=== PATIENT | female | born 1940 | race African-American/Black ===

== ENCOUNTER 2016-10-08 20:11 | Inpatient (IN) | payer OTHER ==
[~2016-10-08] VITALS: Ht 165.1 cm; Wt 115.0 kg
[2016-10-08] MEDS ORDERED: UNABLE MC (20:30)
[2016-10-08 21:29] LABS: BASO # 0.2 x10^3/uL (0.0-0.2); BASO % 1 % (0-3); EOS % 0 % (0-3); HEMATOCRIT 36.7 % (36.0-47.0); HEMOGLOBIN 11.5 g/dL (12.0-15.5); LYMPH # 2.6 x10^3/uL (1.0-4.8); LYMPH % 18 % (24-48); MEAN CORPUSCULAR HEMOGLOBIN 28 pg (25-35); MEAN CORPUSCULAR HGB CONC 31 g/dL (31-37); MEAN CORPUSCULAR VOLUME 91 fL (79-100); MONO % 5 % (0-9); NEUT % 76 % (31-73); PLATELET COUNT 364 x10^3/uL (140-400); RED BLOOD COUNT 4.06 x10^6/uL (3.50-5.40); RED CELL DISTRIBUTION WIDTH 16.5 % (11.5-14.5); WHITE BLOOD COUNT 14.9 x10^3/uL (4.0-11.0)
[2016-10-08] MEDS ORDERED: ONDANSETRON PF 4 MG/2 ML VIAL. IV ONE (21:30)
[2016-10-08 21:43] LABS: CALCIUM 9.2 mg/dL (8.5-10.1); CREATININE 1.2 mg/dL (0.6-1.0); GFR 43.9
[2016-10-08 21:50] LABS: ALBUMIN/GLOBULIN RATIO 0.7 (1.0-1.7); TOTAL BILIRUBIN 0.1 mg/dL (0.2-1.0); TOTAL PROTEIN 7.3 g/dL (6.4-8.2)
--- NOTE | 2016-10-08 22:20 | ED.ADGEN ---
Past Medical History Past Medical History: CHF, COPD, Diabetes-Type II, Hypertension Additional Past Medical Histor: obesity,falls,shingles Past Surgical History: Other Additional Past Surgical Histo: hernia Alcohol Use: None Drug Use: None Adult General Chief Complaint Chief Complaint: DIZZY/LIGHT HEADED HPI HPI Patient is a 75 year old woman, history of CHF, COPD, hypertension, type 2 diabetes mellitus, who presents emergency department with multiple complaints. Patient states that she woke 2 days ago, and was feeling unwell. She states that she is not quite clear whether she felt nauseous first had vomiting, or she began feeling lightheaded and dizzy, both of the stings occurred. She denies any chest pain or shortness of breath, any fevers or chills, states she received her flu vaccination this year, was exposed to a granddaughter who is ill. No coughing, denies any swelling in her extremities. States that she has been compliant with her medications. Describes the lightheadedness as a vertiginous type symptom, denies any weakness numbness or tingling, headache " is all over", no neck pain, does complain of generalized malaise and generalized "all over" weakness. She states that she's had several episodes of "blacking out", where she was held down onto a couch by family, but has not had any injuries. She states that she's "seen all black" when this happens, although is unclear whether she actually fully loss consciousness or came very close to losing consciousness. This followed multiple episodes of vomiting, denies any diarrhea, states that she has "all over" soreness in her abdomen after vomiting, last bowel movement was today and was normal. In eyes any urinary complaints. Review of Systems Review of Systems Constitutional: Denies fever or chills. [] Eyes: Denies change in visual acuity. [] HENT: Denies nasal congestion or sore throat. [] Respiratory: Denies cough or shortness of breath. [] Cardiovascular: Denies chest pain or edema. [] GI: Nausea, vomiting, abdominal soreness, no bloody stools or diarrhea. : Denies dysuria. [] Musculoskeletal: Denies back pain or joint pain. [] Integument: Denies rash. [] Neurologic: Denies focal weakness or sensory changes. [Generalized malaise, headache all over the head. "Blackouts". Endocrine: Denies polyuria or polydipsia. [] Lymphatic: Denies swollen glands. [] Psychiatric: Denies depression or anxiety. [] Current Medications Current Medications Current Medications Medications (Trade) Dose Ordered Sig/Babs Start Time Stop Time Status Last Admin Dose Admin Ondansetron HCl (Zofran) 4 mg 1X ONCE 10/08/16 21:30 10/08/16 21:31 DC 10/08/16 21:29 4 MG Allergies Allergies Allergies Coded Allergies Type Severity Reaction Last Updated Verified No Known Drug Allergies 10/08/16 No Physical Exam Physical Exam Constitutional: Well developed, obese, no acute distress, non-toxic appearance. [] HENT: Normocephalic, atraumatic, bilateral external ears normal, oropharynx moist, no oral exudates, nose normal. [] Eyes: PERRLA, EOMI, conjunctiva normal, no discharge. [] Neck: Normal range of motion, no tenderness, supple, no stridor. [] Cardiovascular:Heart rate regular rhythm, no murmur, S1, S2, no rubs or gallops , soft heart sounds. [] Lungs & Thorax: Distress of the bases bilaterally, with a few mild scattered wheezes, no rhonchi or rales. [] Abdomen: Bowel sounds normal, obese, soft, mild wrist palpation diffusely, no rebound, rigidity or guarding, patient with well-healed midline surgical incision status post a hernia repair no masses, no pulsatile masses. [] Skin: Warm, dry, no erythema, no rash. [] Back: No tenderness, no CVA tenderness. [] Extremities: No tenderness, no cyanosis, no clubbing, ROM intact, no edema. [] Neurologic: Alert and oriented X 3, normal motor function, normal sensory function, no focal deficits noted. [] Psychologic: Affect normal, judgement normal, mood normal. [] Current Patient Data Vital Signs Vital Signs Date Time Temp Pulse Resp B/P Pulse Ox O2 Delivery O2 Flow Rate FiO2 10/08/16 20:11 98.0 80 22 195/93 96 Room Air 98.0 Lab Values Laboratory Tests Test 10/08/16 20:40 10/08/16 22:36 10/08/16 22:37 10/08/16 22:50 White Blood Count 14.9x10^3/uL (4.0-11.0) H Red Blood Count 4.06x10^6/uL (3.50-5.40) Hemoglobin 11.5g/dL (12.0-15.5) L Hematocrit 36.7% (36.0-47.0) Mean Corpuscular Volume 91fL (79-100) Mean Corpuscular Hemoglobin 28pg (25-35) Mean Corpuscular Hemoglobin Concent 31g/dL (31-37) Red Cell Distribution Width 16.5% (11.5-14.5) H Platelet Count 364x10^3/uL (140-400) Neutrophils (%) (Auto) 76% (31-73) H Lymphocytes (%) (Auto) 18% (24-48) L Monocytes (%) (Auto) 5% (0-9) Eosinophils (%) (Auto) 0% (0-3) Basophils (%) (Auto) 1% (0-3) Neutrophils # (Auto) 11.3x10^3uL (1.8-7.7) H Lymphocytes # (Auto) 2.6x10^3/uL (1.0-4.8) Monocytes # (Auto) 0.8x10^3/uL (0.0-1.1) Eosinophils # (Auto) 0.0x10^3/uL (0.0-0.7) Basophils # (Auto) 0.2x10^3/uL (0.0-0.2) Prothrombin Time 13.0SEC (11.7-14.0) Prothrombin Time INR 1.0 (0.8-1.1) PTT 30SEC (24-38) Sodium Level 140mmol/L (136-145) Potassium Level 4.0mmol/L (3.5-5.1) Chloride Level 103mmol/L (98-107) Carbon Dioxide Level 31mmol/L (21-32) Anion Gap 6 (6-14) Blood Urea Nitrogen 20mg/dL (7-20) Creatinine 1.2mg/dL (0.6-1.0) H Estimated GFR (Cockcroft-Gault) 43.9 BUN/Creatinine Ratio 17 (6-20) Glucose Level 176mg/dL (70-99) H Calcium Level 9.2mg/dL (8.5-10.1) Total Bilirubin 0.1mg/dL (0.2-1.0) L Aspartate Amino Transferase (AST) 15U/L (15-37) Alanine Aminotransferase (ALT) 20U/L (14-59) Alkaline Phosphatase 103U/L (46-116) Troponin I Quantitative < 0.017ng/mL (0.000-0.055) Total Protein 7.3g/dL (6.4-8.2) Albumin 3.0g/dL (3.4-5.0) L Albumin/Globulin Ratio 0.7 (1.0-1.7) L Lipase 117U/L (73-393) Influenza Type A Antigen Negative (NEGATIVE) Influenza Type B Antigen Negative (NEGATIVE) Lactic Acid Level 1.7mmol/L (0.4-2.0) Urine Collection Type Unknown Urine Color Yellow Urine Clarity Cloudy Urine pH 5.5 Urine Specific [place] 1.015 Urine Protein Negativemg/dL (NEG-TRACE) Urine Glucose (UA) Negativemg/dL (NEG) Urine Ketones (Stick) Negativemg/dL (NEG) Urine Blood Negative (NEG) Urine Nitrite Negative (NEG) Urine Bilirubin Negative (NEG) Urine Urobilinogen Dipstick 0.2mg/dL (0.2 mg/dL) Urine Leukocyte Esterase Negative (NEG) Urine RBC Occ/HPF (0-2) Urine WBC 1-4/HPF (0-4) Urine Squamous Epithelial Cells Mod/LPF Urine Bacteria Moderate/HPF (0-FEW) Urine Hyaline Casts Few/HPF Urine Mucus Slight/LPF Urine Opiates Screen Pos (NEG) Urine Methadone Screen Neg (NEG) Urine Barbiturates Neg (NEG) Urine Phencyclidine Screen Neg (NEG) Urine Amphetamine/Methamphetamine Neg (NEG) Urine Benzodiazepines Screen Neg (NEG) Urine Cocaine Screen Neg (NEG) Urine Cannabinoids Screen Neg (NEG) Urine Ethyl Alcohol Neg (NEG) Laboratory Tests 10/08/16 20:40 Laboratory Tests 10/08/16 20:40 EKG EKG EC: Sinus rhythm, heart rate 79 beats minute, left axis deviation, QTC of 455, DE 126, QRS of 70, moderate baseline artifact, no ST elevations or depressions, no evidence of acute ST abnormalities. [Hypertrophy noted. Does not meet STEMI criteria. As interpreted by me. [] Radiology/Procedures Radiology/Procedures [] [facility] [address] [place] [address] IMAGING REPORT Signed PATIENT: AYANA COTE ACCOUNT: [id number] : 1940 LOCATION: ER AGE: 75 SEX: F EXAM STATUS: REG ER ORD. PHYSICIAN: JEAN SWENSON DO REASON: Dizziness/SEAY x 2 days PROCEDURE: HEAD WO CONTRAST PROCEDURE Noncontrast head CT HISTORY Dizziness. Headache for 2 days. History of TIA. TECHNIQUE Noncontrast axial cross sectional CT scanning of the head was performed. One or more of the following individualized dose reduction techniques were utilized for this study: 1. Automated exposure control 2. Adjustment of the mA and/or kV according to patient size 3. Use of iterative reconstruction technique COMPARISON None available. FINDINGS No acute intracranial hemorrhage or midline shift or mass-effect or hydrocephalus or extra-axial fluid collection is seen. No focal hypodense area is seen to indicate an acute infarct or edema radiographically. No skull fracture or pneumocephalus is seen. No opacification of the mastoid sinuses or the paranasal sinuses is seen. The maxillary sinuses are not completely seen in this study. IMPRESSION No acute intracranial abnormality is seen. Electronically signed by: Sima Marte MD (Oct 08, 2016 22:41:13) DICTATED and SIGNED BY: SIMA MARTE MD DATE: 10/08/162240 CC: JEAN SWENSON DO; NO PCP ~ Acute abdominal series: 3 view: Normal cardiopulmonary silhouette, no infiltrates or effusions identified, no free air, no pneumothorax, patient with an obese abdomen, stool and bowel gas noted throughout, no air-fluid levels, no evidence of obstruction. As interpreted by me. Course & Med Decision Making Course & Med Decision Making Pertinent Labs and Imaging studies reviewed. (See chart for details) Patient's laboratory studies and imaging in the emergency department did not reveal any acutely concerning findings, or a cause for her recurrent report of syncope. Flu swab was negative. I did discuss these findings with the patient and family at bedside, as we do not have a clear etiology for the patient's syncopal events, she is agreeable for admission to the hospital for continued evaluation. She remained stable in sinus rhythm on the monitor. I did discuss findings as above with Dr. ashley of internal medicine, patient was accepted to his service as a full admission to the cardiac telemetry floor, with consultation and bridging orders entered per his request. Dragon Disclaimer Dragon Disclaimer This electronic medical record was generated, in whole or in part, using a voice recognition dictation system. Departure Impression: Primary Impression: Syncope Disposition: 09 ADMITTED INPATIENT Admitting Physician: Nelda Ashley Condition: STABLE Problem Qualifiers Primary Impression: Syncope Encounter type: initial encounter JEAN SWENSON DO Oct 08, 2016 22:20
--- NOTE | 2016-10-08 22:42 | RAD ---
PROCEDURE Noncontrast head CT HISTORY Dizziness. Headache for 2 days. History of TIA. TECHNIQUE Noncontrast axial cross sectional CT scanning of the head was performed. One or more of the following individualized dose reduction techniques were utilized for this study: 1. Automated exposure control 2. Adjustment of the mA and/or kV according to patient size 3. Use of iterative reconstruction technique COMPARISON None available. FINDINGS No acute intracranial hemorrhage or midline shift or mass-effect or hydrocephalus or extra-axial fluid collection is seen. No focal hypodense area is seen to indicate an acute infarct or edema radiographically. No skull fracture or pneumocephalus is seen. No opacification of the mastoid sinuses or the paranasal sinuses is seen. The maxillary sinuses are not completely seen in this study. IMPRESSION No acute intracranial abnormality is seen. Electronically signed by: Costa Maret MD (Oct 08, 2016 22:41:13)
[2016-10-08 22:57] LABS: BILIRUBIN,URINE NEGATIVE (NEG); GLUCOSE,URINE NEGATIVE (NEG); NITRITE,URINE NEGATIVE (NEG); PH,URINE 5.5; PROTEIN,URINE NEGATIVE (NEG-TRACE); UROBILINOGEN,URINE 0.2 mg/dL (0.2 mg/dL)
[2016-10-08 23:05] LABS: RBC,URINE OCC /HPF (0-2)
[2016-10-08 23:06] LABS: BACTERIA,URINE MODERATE /HPF (0-FEW); SQUAMOUS EPITHELIAL CELL,UR MOD /LPF
[2016-10-08 23:12] LABS: OBC FLU VALID
[2016-10-08 23:14] LABS: BARBITURATES NEG (NEG); BENZODIAZEPINES NEG (NEG); CANNABINOIDS NEG (NEG); COCAINE NEG (NEG); METHADONE NEG (NEG); OPIATES POS (NEG); PHENCYCLIDINE NEG (NEG)
[2016-10-08 23:16] LABS: ETHANOL, URINE NEG (NEG)
[2016-10-09] VITALS (7 sets, daily range): BP systolic 125–160; BP diastolic 39–72
[2016-10-09] MEDS ORDERED: ACETAMINOPHEN 325 MG TABLET. PO PRN ×2 (01:00→16:00)
[2016-10-09] MEDS ORDERED: DEXTROSE 50% 25 GM / 50ML DISP.SYRIN. IV PRN (01:00)
--- NOTE | 2016-10-09 07:54 | EKG ---
[facility] [address] [place] [address] Test Date: 2016-10-08 Test Time: 20:22:34 Pat Name: AYANA COTE Department: Room: 260 1 Gender: F Crossbar Frame Wirer: : 1940 Requested By: JEAN SWENSON Order Number: [id number] Reading MD: Varghese Nolan Measurements Intervals [place] Rate: 79 P: 56 AL: 126 QRS: -19 QRSD: 70 T: 32 QT: 396 QTc: 455 Interpretive Statements SINUS RHYTHM LEFTWARD AXIS POSSIBLY ABNORMAL ECG RI6.01 No previous ECG available for comparison Electronically Signed On 10-23-2016 14:45:41 [employer] by Varghese Nolan
[2016-10-09] MEDS: INSULIN ASPART 300 UNITS/3 ML INSULN.PEN SQ SCH ×3 (08:00→17:00)
--- NOTE | 2016-10-09 08:08 | RAD ---
Abdomen series with chest, 10/08/2016: History: Dizziness, nausea and vomiting The flank regions are not completely included on these images of this large patient. The abdominal gas pattern is unremarkable without evidence of obstruction. No free air seen in the abdomen. There is no evidence of organomegaly. Aortoiliac calcific plaquing is present. Lower pelvic calcifications are probably phleboliths. Moderate degenerative change is evident in the spine. The heart appears to be within normal limits in size. The pulmonary vascularity is normal. No pulmonary infiltrates are seen. There is no evidence of pleural fluid. IMPRESSION: No acute abnormality is detected.
[2016-10-09] MEDS: IPRATRPIUM/ALBUTEROL 0.5/2.5MG 3 ML NEBU. NEB SCH ×4 (08:22→19:39)
--- NOTE | 2016-10-09 11:51 | PDOC2 ---
OLIMPIAYUVAL CHOW IV THERAPY NURSE 10/09/16 1150: CARDIAC CONSULT DATE OF CONSULT Date of Consult DATE: 10/09/16 TIME: 11:31 REASON FOR CONSULT Reason for Consult: syncope REFERRING PHYSICIAN Referring Physician: Dr. Melinda Manriquez SOURCE Source: Chart review, Patient HISTORY OF PRESENT ILLNESS HISTORY OF PRESENT ILLNESS 75 year old female with recent history of dizziness, lightheadedness, possible syncope, a "frying" sensation in her head and her "brains hurting." Reportedly "sees black" and then was placed on couch by family. Dizziness worse with turning head from side to side. BP was 195/93 POA. Also with c/o chest pain, dyspnea and LE edema as well a pain on the scalp " from shingles" and complaints regarding "indentations" in her head. ER records note nausea and vomiting, though she did not discuss those symptoms with this provider. Has seen usual spa consultant, Dr. Sharpe, of [facility] in the last month with an echo about 3 months ago and an MPI in the last 12 - 18 months. UDS + for opiates; unknown what she is taking as she has declined to provide a list of her current medications. Negative for influenza. Three troponin levels not consistent with AMI and no acute changes in EKG. Reason for Visit: dizziness PAST MEDICAL HISTORY Cardiovascular: CHF, HTN Pulmonary: COPD CENTRAL NERVOUS SYSTEM: CVA GI: Other (morbid obesity; ? liver disease) Musculoskeletal: Other (balance disturbance) Rheumatologic: No pertinent hx Infectious disease: No pertinent hx ENT: No pertinent hx Renal/: No pertinent hx Endocrine: Diabetes Dermatology: No pertinent hx PAST SURGICAL HISTORY Past Surgical History: Hernia Repair, Tubal Ligation FAMILY HISTORY Family History: Heart Disease (daughter) SOCIAL HISTORY Smoke: <1 pack per day ALCOHOL: none Drugs: None Lives: with Family CURRENT MEDICATIONS CURRENT MEDICATIONS Current Medications Medications (Trade) Dose Ordered Sig/Babs Route PRN Reason Start Time Stop Time Status Last Admin Dose Admin Ondansetron HCl (Zofran) 4 mg 1X ONCE IV 10/08/16 21:30 10/08/16 21:31 DC 10/08/16 21:29 Albuterol/ Ipratropium (Duoneb) 3 ml RTQID NEB 10/09/16 08:00 10/10/16 07:59 10/09/16 08:22 ALLERGIES ALLERGIES: Coded Allergies: No Known Drug Allergies (Unverified , 10/08/16) ROS Review of System 14 point review with pertinent positives in HPI PHYSICAL EXAM General: Alert, Oriented X3, Cooperative HEENT: Atraumatic, PERRLA Lungs: Clear to auscultation, Normal air movement Heart: Regular rate, Normal S1, Normal S2 Abdomen: Normal bowel sounds, Soft, No masses, Other (obese abdomen) Extremities: Normal pulses, Other (mild LE edema) Skin: No rashes Neuro: Normal speech Psych/Mental Status: Mental status NL, Mood NL MUSCULOSKELETAL: No swelling VITALS VITALS Vital Signs Date Time Temp Pulse Resp B/P Pulse Ox O2 Delivery O2 Flow Rate FiO2 10/09/16 08:25 98 Nasal Cannula 2.0 10/09/16 07:00 98.1 76 20 125/65 98.1 LABS Lab: Laboratory Tests Test 10/08/16 20:40 10/08/16 22:36 10/08/16 22:37 10/08/16 22:50 White Blood Count 14.9x10^3/uL (4.0-11.0) Red Blood Count 4.06x10^6/uL (3.50-5.40) Hemoglobin 11.5g/dL (12.0-15.5) Hematocrit 36.7% (36.0-47.0) Mean Corpuscular Volume 91fL (79-100) Mean Corpuscular Hemoglobin 28pg (25-35) Mean Corpuscular Hemoglobin Concent 31g/dL (31-37) Red Cell Distribution Width 16.5% (11.5-14.5) Platelet Count 364x10^3/uL (140-400) Neutrophils (%) (Auto) 76% (31-73) Lymphocytes (%) (Auto) 18% (24-48) Monocytes (%) (Auto) 5% (0-9) Eosinophils (%) (Auto) 0% (0-3) Basophils (%) (Auto) 1% (0-3) Neutrophils # (Auto) 11.3x10^3uL (1.8-7.7) Lymphocytes # (Auto) 2.6x10^3/uL (1.0-4.8) Monocytes # (Auto) 0.8x10^3/uL (0.0-1.1) Eosinophils # (Auto) 0.0x10^3/uL (0.0-0.7) Basophils # (Auto) 0.2x10^3/uL (0.0-0.2) Prothrombin Time 13.0SEC (11.7-14.0) Prothromb Time International Ratio 1.0 (0.8-1.1) Activated Partial Thromboplast Time 30SEC (24-38) Sodium Level 140mmol/L (136-145) Potassium Level 4.0mmol/L (3.5-5.1) Chloride Level 103mmol/L (98-107) Carbon Dioxide Level 31mmol/L (21-32) Anion Gap 6 (6-14) Blood Urea Nitrogen 20mg/dL (7-20) Creatinine 1.2mg/dL (0.6-1.0) Estimated GFR (Cockcroft-Gault) 43.9 BUN/Creatinine Ratio 17 (6-20) Glucose Level 176mg/dL (70-99) Calcium Level 9.2mg/dL (8.5-10.1) Total Bilirubin 0.1mg/dL (0.2-1.0) Aspartate Amino Transf (AST/SGOT) 15U/L (15-37) Alanine Aminotransferase (ALT/SGPT) 20U/L (14-59) Alkaline Phosphatase 103U/L (46-116) Troponin I Quantitative < 0.017ng/mL (0.000-0.055) Total Protein 7.3g/dL (6.4-8.2) Albumin 3.0g/dL (3.4-5.0) Albumin/Globulin Ratio 0.7 (1.0-1.7) Lipase 117U/L (73-393) Influenza Type A Antigen Negative (NEGATIVE) Influenza Type B Antigen Negative (NEGATIVE) Lactic Acid Level 1.7mmol/L (0.4-2.0) Urine Collection Type Unknown Urine Color Yellow Urine Clarity Cloudy Urine pH 5.5 Urine Specific [place] 1.015 Urine Protein Negativemg/dL (NEG-TRACE) Urine Glucose (UA) Negativemg/dL (NEG) Urine Ketones (Stick) Negativemg/dL (NEG) Urine Blood Negative (NEG) Urine Nitrite Negative (NEG) Urine Bilirubin Negative (NEG) Urine Urobilinogen Dipstick 0.2mg/dL (0.2 mg/dL) Urine Leukocyte Esterase Negative (NEG) Urine RBC Occ/HPF (0-2) Urine WBC 1-4/HPF (0-4) Urine Squamous Epithelial Cells Mod/LPF Urine Bacteria Moderate/HPF (0-FEW) Urine Hyaline Casts Few/HPF Urine Mucus Slight/LPF Urine Opiates Screen Pos (NEG) Urine Methadone Screen Neg (NEG) Urine Barbiturates Neg (NEG) Urine Phencyclidine Screen Neg (NEG) Urine Amphetamine/Methamphetamine Neg (NEG) Urine Benzodiazepines Screen Neg (NEG) Urine Cocaine Screen Neg (NEG) Urine Cannabinoids Screen Neg (NEG) Urine Ethyl Alcohol Neg (NEG) Test 10/09/16 03:00 10/09/16 08:35 10/09/16 08:47 Troponin I Quantitative < 0.017ng/mL (0.000-0.055) < 0.017ng/mL (0.000-0.055) Glucose (Fingerstick) 124mg/dL (70-99) IMAGES IMAGES CT head, abd and CXR - without acute findings EKG EKG no acute changes ASSESSMENT/PLAN ASSESSMENT/PLAN 1. dizziness, lightheadedness, ? syncope check orthostatic BP readings ? vertigo as symptoms worse with turning head side to side records requested from [facility] - recent echo and MPI ? related to narcotic use - home meds unknown as pt declines to provide list 2. CP EKG and troponin levels not consistent with AMI reproducible ? related to vomiting recent evaluation with records requested 3. dyspnea lying flat in bed O2 sats WNL - ? no acute findings in CXR awaiting echo report 4. HTN as meds unknown - will start amlodipine 5 mg daily awaiting records 5. morbid obesity; BMI = 42 6. tobacco abuse ADDENDUM @ 1322: REVIEW OF RECORDS FROM [facility]: Dobutamine SE: 09/04/15: non-ischemic, LVEF = 60% Carotid Artery Duplex: 10/18/2015: no significant stenosis bilaterally RHC: 10/19/2015: RV 39/14 with mean of 14. PA 37/19 with PCWP of 15; C.O = 5.9 L/min with C.I. 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 post herpetic neuralgia - since 01/2014 GERD large sliding HH iron deficiency anemia anxiety and depression asthma with chronic bronchitis morbid obesity CKD, stage III PLAN: restart cardiac meds as listed in 12/2015 OPV from [facility] aspirin, atorvastatin, bumex 2 mg BID; toprol LX 50; KCl 20; aldactone 25 no indication for further cardiac evaluation as through evaluation @ [facility] in the last 2 years Problems: SYLVIA RODRIGUEZ MD 10/09/16 5697: CARDIAC CONSULT ALLERGIES ALLERGIES: Coded Allergies: No Known Drug Allergies (Unverified , 10/08/16) ASSESSMENT/PLAN ASSESSMENT/PLAN Patient seen and examined. Agree with above nurse practitioner note. 75-year-old woman presenting with multiple complaints as noted above. On cardiac examination there is no obvious abnormalities. Laboratory studies and EKG and outside hospital studies reviewed. Reinitiate home medications. Her symptoms appear to be multiple nature and no single diagnosis is prevalent. She was up early hypoxic at home and this may been the contributing factor in the setting of long-standing COPD. She might benefit from a outpatient pulmonary evaluation versus reassessment on inpatient basis but will defer to primary care physician. Problems: YUVAL MORSE APRN Oct 09, 2016 11:50 SYLVIA RODRIGUEZ MD Oct 09, 2016 17:09
[2016-10-09] MEDS ORDERED: AMLODIPINE BESYLATE 5 MG TABLET PO SCH (12:00)
[2016-10-09] MEDS: SPIRONOLACTONE 25 MG TABLET PO SCH (13:45)
[2016-10-09] MEDS: POTASSIUM CHLORIDE 20 MEQ TABLET.ER. PO SCH (13:45)
[2016-10-09] MEDS: METOPROLOL SUCC 24HR ER 50 MG TAB.ER.24H. PO SCH (13:45)
[2016-10-09] MEDS: ASPIRIN ENTERIC COATED 81 MG TABLET.DR. PO SCH (13:45)
[2016-10-09] MEDS: BUMETANIDE 1 MG TABLET PO SCH (14:00)
[2016-10-09] MEDS ORDERED: ALLO100T PO (15:05)
[2016-10-09] MEDS ORDERED: ATOR40TA59 PO (15:05)
[2016-10-09] MEDS ORDERED: ASPI81TA2 PO (15:05)
[2016-10-09] MEDS ORDERED: PROAIR RESPICL90 MCG IH (15:05)
[2016-10-09] MEDS ORDERED: PROC10TA57 PO (15:05)
[2016-10-09] MEDS ORDERED: FLUT12HF2 IH (15:05)
[2016-10-09] MEDS ORDERED: BUME1TAB PO (15:05)
--- NOTE | 2016-10-09 15:57 | PDOC1 ---
History and Physical Date of Admission Date of Admission 10/09/16 Identification/Chief Complaint Chief Complaint vertigo Problems: Source Source: Chart review, Patient History of Present Illness History of Present Illness 75yo F, comes for vertigo. She said she has been feeling dizziness for a few days, with room spinning around, especially when turning head, with N/V and syncoped. she also c/o chest pain, intermittent, cannot tell me details, no radiation. with some sob. also had h/o left forehead shingles, since then headache. Past Medical History Cardiovascular: CHF, HTN Pulmonary: COPD CENTRAL NERVOUS SYSTEM: CVA GI: Other (morbid obesity; ? liver disease) Rheumatologic: No pertinent hx Infectious disease: No pertinent hx ENT: No pertinent hx Renal/: No pertinent hx Endocrine: Diabetes Dermatology: No pertinent hx Past Surgical History Past Surgical History: Hernia Repair, Tubal Ligation Family History Family History: Heart Disease (daughter) Social History Smoke: <1 pack per day ALCOHOL: none Drugs: None Current Problem List Problem List Problems Medical Problems: (1) Syncope Status: Acute Current Medications Current Medications Current Medications Medications (Trade) Dose Ordered Sig/Babs Start Time Stop Time Status Last Admin Dose Admin Acetaminophen (Tylenol) 650 mg PRN Q4HRS PRN 10/09/16 01:00 10/10/16 00:59 10/09/16 13:29 650 MG Albuterol/ Ipratropium (Duoneb) 3 ml RTQID 10/09/16 08:00 10/10/16 07:59 10/09/16 12:00 3 ML Amlodipine Besylate (Norvasc) 5 mg DAILY 10/09/16 12:00 10/09/16 13:48 DC 10/09/16 13:29 5 MG Aspirin (Ecotrin) 81 mg DAILYWBKFT 10/09/16 13:45 Atorvastatin Calcium (Lipitor) 40 mg QHS 10/09/16 21:00 Bumetanide (Bumex) 2 mg BID92 10/09/16 14:00 Dextrose 12.5 gm PRN Q15MIN PRN 10/09/16 01:00 Insulin Aspart (Novolog) 0-5 UNITS TIDWMEALS 10/09/16 08:00 Metoprolol Succinate (Toprol Xl) 50 mg DAILY 10/09/16 13:45 Ondansetron HCl (Zofran) 4 mg 1X ONCE 10/08/16 21:30 10/08/16 21:31 DC 10/08/16 21:29 4 MG Pantoprazole Sodium (Protonix) 40 mg DAILYAC 10/10/16 07:30 Potassium Chloride (Klor-Con) 20 meq DAILY 10/09/16 13:45 Spironolactone (Aldactone) 25 mg DAILY 10/09/16 13:45 Allergies Allergies Allergies Coded Allergies Type Severity Reaction Last Updated Verified No Known Drug Allergies 10/08/16 No ROS Review of System CONSTITUTIONAL: No fever or chills EYES: No recent changes SKIN: No rash or itching CARDIOVASCULAR: No chest pain, syncope, palpitations, or edema RESPIRATORY: No SOB or cough GASTROINTESTINAL: No nausea, vomiting or abdominal pain NEUROLOGICAL: No headaches or weakness ENDOCRINE: No cold or heat intolerance GENITOURINARY: No urgency or frequency of urination MUSCULOSKELETAL: No back pain or joint pain LYMPHATICS: No enlarged lymph nodes PSYCHIATRIC: No anxiety or depression Physical Exam Physical Exam GEN.: No apparent distress. Alert and oriented. HEENT: Head is normocephalic, atraumatic NECK: Supple. LUNGS: Clear to auscultation. HEART: RRR, S1, S2 present. Peripheral pulses intact ABDOMEN: Soft, nontender. Positive bowel sounds. EXTREMITIES: Without any cyanosis. NEUROLOGIC: Normal speech, normal tone PSYCHIATRIC: Normal affect, normal mood. SKIN: No ulcerations Vitals Vitals Vital Signs Date Time Temp Pulse Resp B/P Pulse Ox O2 Delivery O2 Flow Rate FiO2 10/09/16 15:00 98.0 83 22 160/71 98 Nasal Cannula 98.0 10/09/16 12:01 2.0 Labs Labs Laboratory Tests Test 10/08/16 20:40 10/08/16 22:36 10/08/16 22:37 10/08/16 22:50 White Blood Count 14.9x10^3/uL (4.0-11.0) Red Blood Count 4.06x10^6/uL (3.50-5.40) Hemoglobin 11.5g/dL (12.0-15.5) Hematocrit 36.7% (36.0-47.0) Mean Corpuscular Volume 91fL (79-100) Mean Corpuscular Hemoglobin 28pg (25-35) Mean Corpuscular Hemoglobin Concent 31g/dL (31-37) Red Cell Distribution Width 16.5% (11.5-14.5) Platelet Count 364x10^3/uL (140-400) Neutrophils (%) (Auto) 76% (31-73) Lymphocytes (%) (Auto) 18% (24-48) Monocytes (%) (Auto) 5% (0-9) Eosinophils (%) (Auto) 0% (0-3) Basophils (%) (Auto) 1% (0-3) Neutrophils # (Auto) 11.3x10^3uL (1.8-7.7) Lymphocytes # (Auto) 2.6x10^3/uL (1.0-4.8) Monocytes # (Auto) 0.8x10^3/uL (0.0-1.1) Eosinophils # (Auto) 0.0x10^3/uL (0.0-0.7) Basophils # (Auto) 0.2x10^3/uL (0.0-0.2) Prothrombin Time 13.0SEC (11.7-14.0) Prothromb Time International Ratio 1.0 (0.8-1.1) Activated Partial Thromboplast Time 30SEC (24-38) Sodium Level 140mmol/L (136-145) Potassium Level 4.0mmol/L (3.5-5.1) Chloride Level 103mmol/L (98-107) Carbon Dioxide Level 31mmol/L (21-32) Anion Gap 6 (6-14) Blood Urea Nitrogen 20mg/dL (7-20) Creatinine 1.2mg/dL (0.6-1.0) Estimated GFR (Cockcroft-Gault) 43.9 BUN/Creatinine Ratio 17 (6-20) Glucose Level 176mg/dL (70-99) Calcium Level 9.2mg/dL (8.5-10.1) Total Bilirubin 0.1mg/dL (0.2-1.0) Aspartate Amino Transf (AST/SGOT) 15U/L (15-37) Alanine Aminotransferase (ALT/SGPT) 20U/L (14-59) Alkaline Phosphatase 103U/L (46-116) Troponin I Quantitative < 0.017ng/mL (0.000-0.055) Total Protein 7.3g/dL (6.4-8.2) Albumin 3.0g/dL (3.4-5.0) Albumin/Globulin Ratio 0.7 (1.0-1.7) Lipase 117U/L (73-393) Influenza Type A Antigen Negative (NEGATIVE) Influenza Type B Antigen Negative (NEGATIVE) Lactic Acid Level 1.7mmol/L (0.4-2.0) Urine Collection Type Unknown Urine Color Yellow Urine Clarity Cloudy Urine pH 5.5 Urine Specific [place] 1.015 Urine Protein Negativemg/dL (NEG-TRACE) Urine Glucose (UA) Negativemg/dL (NEG) Urine Ketones (Stick) Negativemg/dL (NEG) Urine Blood Negative (NEG) Urine Nitrite Negative (NEG) Urine Bilirubin Negative (NEG) Urine Urobilinogen Dipstick 0.2mg/dL (0.2 mg/dL) Urine Leukocyte Esterase Negative (NEG) Urine RBC Occ/HPF (0-2) Urine WBC 1-4/HPF (0-4) Urine Squamous Epithelial Cells Mod/LPF Urine Bacteria Moderate/HPF (0-FEW) Urine Hyaline Casts Few/HPF Urine Mucus Slight/LPF Urine Opiates Screen Pos (NEG) Urine Methadone Screen Neg (NEG) Urine Barbiturates Neg (NEG) Urine Phencyclidine Screen Neg (NEG) Urine Amphetamine/Methamphetamine Neg (NEG) Urine Benzodiazepines Screen Neg (NEG) Urine Cocaine Screen Neg (NEG) Urine Cannabinoids Screen Neg (NEG) Urine Ethyl Alcohol Neg (NEG) Test 10/09/16 03:00 10/09/16 08:35 10/09/16 08:47 10/09/16 11:42 Troponin I Quantitative < 0.017ng/mL (0.000-0.055) < 0.017ng/mL (0.000-0.055) Glucose (Fingerstick) 124mg/dL (70-99) 115mg/dL (70-99) Thyroid Stimulating Hormone (TSH) 0.349uIU/mL (0.358-3.74) Laboratory Tests Test 10/08/16 20:40 10/08/16 22:36 10/08/16 22:37 10/08/16 22:50 White Blood Count 14.9x10^3/uL (4.0-11.0) Red Blood Count 4.06x10^6/uL (3.50-5.40) Hemoglobin 11.5g/dL (12.0-15.5) Hematocrit 36.7% (36.0-47.0) Mean Corpuscular Volume 91fL (79-100) Mean Corpuscular Hemoglobin 28pg (25-35) Mean Corpuscular Hemoglobin Concent 31g/dL (31-37) Red Cell Distribution Width 16.5% (11.5-14.5) Platelet Count 364x10^3/uL (140-400) Neutrophils (%) (Auto) 76% (31-73) Lymphocytes (%) (Auto) 18% (24-48) Monocytes (%) (Auto) 5% (0-9) Eosinophils (%) (Auto) 0% (0-3) Basophils (%) (Auto) 1% (0-3) Neutrophils # (Auto) 11.3x10^3uL (1.8-7.7) Lymphocytes # (Auto) 2.6x10^3/uL (1.0-4.8) Monocytes # (Auto) 0.8x10^3/uL (0.0-1.1) Eosinophils # (Auto) 0.0x10^3/uL (0.0-0.7) Basophils # (Auto) 0.2x10^3/uL (0.0-0.2) Prothrombin Time 13.0SEC (11.7-14.0) Prothromb Time International Ratio 1.0 (0.8-1.1) Activated Partial Thromboplast Time 30SEC (24-38) Sodium Level 140mmol/L (136-145) Potassium Level 4.0mmol/L (3.5-5.1) Chloride Level 103mmol/L (98-107) Carbon Dioxide Level 31mmol/L (21-32) Anion Gap 6 (6-14) Blood Urea Nitrogen 20mg/dL (7-20) Creatinine 1.2mg/dL (0.6-1.0) Estimated GFR (Cockcroft-Gault) 43.9 BUN/Creatinine Ratio 17 (6-20) Glucose Level 176mg/dL (70-99) Calcium Level 9.2mg/dL (8.5-10.1) Total Bilirubin 0.1mg/dL (0.2-1.0) Aspartate Amino Transf (AST/SGOT) 15U/L (15-37) Alanine Aminotransferase (ALT/SGPT) 20U/L (14-59) Alkaline Phosphatase 103U/L (46-116) Troponin I Quantitative < 0.017ng/mL (0.000-0.055) Total Protein 7.3g/dL (6.4-8.2) Albumin 3.0g/dL (3.4-5.0) Albumin/Globulin Ratio 0.7 (1.0-1.7) Lipase 117U/L (73-393) Influenza Type A Antigen Negative (NEGATIVE) Influenza Type B Antigen Negative (NEGATIVE) Lactic Acid Level 1.7mmol/L (0.4-2.0) Urine Collection Type Unknown Urine Color Yellow Urine Clarity Cloudy Urine pH 5.5 Urine Specific [place] 1.015 Urine Protein Negativemg/dL (NEG-TRACE) Urine Glucose (UA) Negativemg/dL (NEG) Urine Ketones (Stick) Negativemg/dL (NEG) Urine Blood Negative (NEG) Urine Nitrite Negative (NEG) Urine Bilirubin Negative (NEG) Urine Urobilinogen Dipstick 0.2mg/dL (0.2 mg/dL) Urine Leukocyte Esterase Negative (NEG) Urine RBC Occ/HPF (0-2) Urine WBC 1-4/HPF (0-4) Urine Squamous Epithelial Cells Mod/LPF Urine Bacteria Moderate/HPF (0-FEW) Urine Hyaline Casts Few/HPF Urine Mucus Slight/LPF Urine Opiates Screen Pos (NEG) Urine Methadone Screen Neg (NEG) Urine Barbiturates Neg (NEG) Urine Phencyclidine Screen Neg (NEG) Urine Amphetamine/Methamphetamine Neg (NEG) Urine Benzodiazepines Screen Neg (NEG) Urine Cocaine Screen Neg (NEG) Urine Cannabinoids Screen Neg (NEG) Urine Ethyl Alcohol Neg (NEG) Test 10/09/16 03:00 10/09/16 08:35 10/09/16 08:47 10/09/16 11:42 Troponin I Quantitative < 0.017ng/mL (0.000-0.055) < 0.017ng/mL (0.000-0.055) Glucose (Fingerstick) 124mg/dL (70-99) 115mg/dL (70-99) Thyroid Stimulating Hormone (TSH) 0.349uIU/mL (0.358-3.74) VTE Prophylaxis Ordered VTE Prophylaxis Devices: Yes VTE Pharmacological Prophylaxi: Yes Assessment/Plan Assessment/Plan 1. 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 h/o CHF stable 3. copd, stable 4. dm2 5. htn uncontrolled 6. obesity 7. headache , neuropathy with h/o shingles 8. SIRS WITH leukocytosis plan: 1 fu with card, get neuro consult 2. PTOT , Meclinzine prn 3. cont home meds 4. add gabapentin dvt ppx DIEGO LEMUS MD Oct 09, 2016 15:57
[2016-10-09] MEDS ORDERED: ONDANSETRON PF 4 MG/2 ML VIAL. IV PRN (16:00)
[2016-10-09] MEDS ORDERED: ALBUTEROL SULFATE 2.5 MG/3 ML NEBU. NEB PRN (16:00)
[2016-10-09] MEDS ORDERED: MECLIZINE HCL 12.5 MG TABLET. PO PRN (16:00)
[2016-10-09] MEDS ORDERED: hydrALAZINE 20 MG/ML VIAL. IVP PRN (16:00)
[2016-10-09] MEDS ORDERED: HYDROCODONE/APAP 5/325MG TABLET. PO PRN (16:00)
[2016-10-09] MEDS ORDERED: POTA10CA PO (16:51)
[2016-10-09] MEDS ORDERED: LIDO700A4 TP (16:51)
[2016-10-09] MEDS ORDERED: TIOT18CA IH (16:51)
[2016-10-09] MEDS ORDERED: ONDA4TAB10 SL (16:51)
[2016-10-09] MEDS ORDERED: MECL25TA3 PO (16:51)
[2016-10-09] MEDS ORDERED: SERT100T PO (16:51)
[2016-10-09] MEDS ORDERED: METO25TA9 PO (16:51)
[2016-10-09] MEDS ORDERED: PANT40TA3 PO (16:51)
[2016-10-09] MEDS ORDERED: SPIR25TA3 PO (16:51)
--- NOTE | 2016-10-09 17:48 | PDOC2 ---
NEUROLOGY CONSULT Date of Admission Date of Admission DATE: 10/09/16 TIME: 17:39 Reason for Consult Reason for Consult: vertigo Referring Physician Referring Physician: Dr. Loaiza Source Source: Chart review, Patient History of Present Illness History of Present Illness The patient is a 75-year-old right-handed female presenting with one of several episodes over the past few years of vertigo, whole-body tingling, and loss of consciousness. She was admitted to last year for a week for such an episode. Records show normal carotid Dopplers, no mention of brain imaging or CTA. She says she has been told she had a "light stroke" in the past but knows of no details. She denies dysarthria, dysphagia, or diplopia, or hearing loss, but does have tinnitus Past Medical History Cardiovascular: Syncope Pulmonary: COPD, Other (sleep apnea) CENTRAL NERVOUS SYSTEM: Periperal neuropathy, Other (post herpetic neuralgia, on scalp) Psych: Anxiety, Depression Endocrine: Diabetes Past Surgical History Past Surgical History: Hernia Repair, Tubal Ligation Family History Family History: CAD Social History Social History No alcohol, smokes tobacco Current Medications Current Medications Current Medications Ondansetron HCl (Zofran) 4 mg 1X ONCE IV Last administered on 10/08/16 21:29 ; Start 10/08/16 at 21:30; Stop 10/08/16 at 21:31; Status DC Acetaminophen (Tylenol) 650 mg PRN Q4HRS PRN PO FEVER Last administered on 10/09 13:29; Start 10/09/16 at 01:00; Stop 10/10/16 at 00:59 Albuterol/ Ipratropium (Duoneb) 3 ml RTQID NEB Last administered on 10/09/16 15:59; Start 10/09/16 at 08:00; Stop 10/10/16 at 07:59 Insulin Aspart (Novolog) 0-5 UNITS TIDWMEALS SQ ; Start 10/09/16 at 08:00 Dextrose 12.5 gm PRN Q15MIN PRN IV SEE COMMENTS; Start 10/09/16 at 01:00 Amlodipine Besylate (Norvasc) 5 mg DAILY PO Last administered on 10/09/16 13: 29; Start 10/09/16 at 12:00; Stop 10/09/16 at 13:48; Status DC Aspirin (Ecotrin) 81 mg DAILYWBKFT PO ; Start 10/09/16 at 13:45 Atorvastatin Calcium (Lipitor) 40 mg QHS PO ; Start 10/09/16 at 21:00 Bumetanide (Bumex) 2 mg BID92 PO ; Start 10/09/16 at 14:00 Metoprolol Succinate (Toprol Xl) 50 mg DAILY PO ; Start 10/09/16 at 13:45 Potassium Chloride (Klor-Con) 20 meq DAILY PO ; Start 10/09/16 at 13:45 Spironolactone (Aldactone) 25 mg DAILY PO ; Start 10/09/16 at 13:45 Pantoprazole Sodium (Protonix) 40 mg DAILYAC PO ; Start 10/10/16 at 07:30 Allopurinol (Zyloprim) 100 mg BID PO ; Start 10/09/16 at 21:00 Aspirin (Children'S Aspirin) 81 mg DAILY PO ; Start 10/10/16 at 09:00; Status UNV Atorvastatin Calcium (Lipitor) 40 mg HS PO ; Start 10/09/16 at 21:00; Status UNV Bumetanide (Bumex) 2 mg BID PO ; Start 10/09/16 at 21:00; Status UNV Albuterol Sulfate (Ventolin Neb Soln) 2.5 mg PRN Q6HRS PRN NEB WHEEZINGE; Start 10/09/16 at 16:00 Non-Formulary Medication 2 inh BID IH ; Start 10/09/16 at 21:00; Status UNV Hydralazine HCl (Apresoline) 10 mg PRN Q4HRS PRN IVP ELEVATED BP, SEE COMMENTS ; Start 10/09/16 at 16:00 Acetaminophen (Tylenol) 650 mg PRN Q6HRS PRN PO MILD PAIN / TEMP; Start at 16:00 Ondansetron HCl (Zofran) 4 mg PRN Q6HRS PRN IV NAUSEA/VOMITING; Start 10/09/16 at 16:00 Meclizine HCl (Antivert) 12.5 mg PRN Q6HRS PRN PO DIZZINESS; Start 10/09/16 at 16:00 Enoxaparin Sodium (Lovenox 40mg Syringe) 40 mg Q12H SQ ; Start 10/09/16 at 21:00 Gabapentin (Neurontin) 100 mg TID PO ; Start 10/09/16 at 21:00 Acetaminophen/ Hydrocodone Bitart (Lortab 5/325) 1 tab PRN Q4HRS PRN PO PAIN; Start 10/09/16 at 16:00 Lidocaine (Lidoderm) 1 patch DAILY TP ; Start 10/10/16 at 09:00 Ondansetron HCl (Zofran Odt) 4 mg Q8HRS PO ; Start 10/09/16 at 22:00 Pantoprazole Sodium (Protonix) 40 mg DAILYAC PO ; Start 10/10/16 at 07:30; Stop 10/10/16 at 07:30; Status DC Meclizine HCl (Antivert) 25 mg TID PO ; Start 10/09/16 at 21:00 Sertraline HCl (Zoloft) 100 mg DAILY PO ; Start 10/10/16 at 09:00 Active Scripts Active Reported Zofran Odt (Ondansetron) 4 Mg Tab.rapdis 1 Tab SL Q8HRS Spironolactone 25 Mg Tablet 1 Tab PO DAILY Spiriva (Tiotropium [place]) 18 Mcg Cap.w.dev 1 Cap IH DAILY Zoloft (Sertraline Hcl) 100 Mg Tablet 1 Tab PO DAILY Protonix (Pantoprazole Sodium) 40 Mg Tablet.dr 1 Tab PO DAILY Potassium Chloride 10 Meq Capsule.er 20 Meq PO DAILY Metoprolol Succinate ( Xl ) (Metoprolol Succinate) 25 Mg Tab.er.24h 50 Mg PO DAILY Meclizine Hcl 25 Mg Tablet 1 Tab PO TID Lidoderm (Lidocaine) 700 Mg Adh..patch 1 Patch TP DAILY Compazine (Prochlorperazine Maleate) 10 Mg Tablet 10 Mg PO PRN Q6-8HRS PRN Bumetanide 1 Mg Tablet 2 Tab PO BID Atorvastatin Calcium 40 Mg Tablet 40 Mg PO HS Aspirin 81 Mg Tab.chew 1 Tab PO DAILY Allopurinol 100 Mg Tablet 1 Tab PO BID Proair Respiclick (Albuterol Sulfate) 90 Mcg Aer.pow.ba 1 Puff IH PRN Q6HRS PRN Advair Hfa 115-21 Mcg Inhaler (Fluticasone/Salmeterol) 12 Gm Hfa.aer.ad 2 Inh IH BID Unable To Obtain Meds From Prior To Admit (Info) Each 1 Each [facility] Allergies Allergies: Coded Allergies: No Known Drug Allergies (Unverified , 10/08/16) ROS Review of System Positive for dyspnea and dyspepsia, 14-point review otherwise negative Physical Exam Physical Examination PHYSICAL EXAMINATION: Vital signs: see above. General appearance is normal and in no acute distress. HEENT: Normocephalic and nontraumatic. Eyes, nose, ears, and throat are unremarkable. Tympnaic membranes clear Neck is supple. No lymphadenopathy. No bruits are heard over the carotid artery. No crepitus. NEUROLOGICAL EXAMINATION: Mental Status Examination: Alert. Oriented to time, place, and person. Answers questions and follows commends. Pupils are equal round and reactive to light and accommodation. Extraocular movements are intact. Visual field exam shows no defect on the direct confrontation. No motor or sensory deficits on the facial exam. Uvula in the midline and the soft palate elevated symmetrically. No deviation of the tongue to any direction. Gross hearing is normal. Shoulder shrug normal. Muscle tone is normal. Muscle strength is 5. Deep tendon reflexes are 1+ all around. Plantar reflex is with flexion response bilaterally. Xchoev-ya-omhm test performance is accurate. Alternative movements are accurate. Gait is apraxic, she has long been using a walker. Sensory exam shows stocking loss. No cerebellar signs are elicited. Vitals VITALS Vital Signs Date Time Temp Pulse Resp B/P Pulse Ox O2 Delivery O2 Flow Rate FiO2 10/09/16 16:00 Nasal Cannula 2.0 10/09/16 15:00 98.0 83 22 160/71 98 98.0 Labs Labs Laboratory Tests Test 10/08/16 20:40 10/08/16 22:36 10/08/16 22:37 10/08/16 22:50 White Blood Count 14.9x10^3/uL (4.0-11.0) Red Blood Count 4.06x10^6/uL (3.50-5.40) Hemoglobin 11.5g/dL (12.0-15.5) Hematocrit 36.7% (36.0-47.0) Mean Corpuscular Volume 91fL (79-100) Mean Corpuscular Hemoglobin 28pg (25-35) Mean Corpuscular Hemoglobin Concent 31g/dL (31-37) Red Cell Distribution Width 16.5% (11.5-14.5) Platelet Count 364x10^3/uL (140-400) Neutrophils (%) (Auto) 76% (31-73) Lymphocytes (%) (Auto) 18% (24-48) Monocytes (%) (Auto) 5% (0-9) Eosinophils (%) (Auto) 0% (0-3) Basophils (%) (Auto) 1% (0-3) Neutrophils # (Auto) 11.3x10^3uL (1.8-7.7) Lymphocytes # (Auto) 2.6x10^3/uL (1.0-4.8) Monocytes # (Auto) 0.8x10^3/uL (0.0-1.1) Eosinophils # (Auto) 0.0x10^3/uL (0.0-0.7) Basophils # (Auto) 0.2x10^3/uL (0.0-0.2) Prothrombin Time 13.0SEC (11.7-14.0) Prothromb Time International Ratio 1.0 (0.8-1.1) Activated Partial Thromboplast Time 30SEC (24-38) Sodium Level 140mmol/L (136-145) Potassium Level 4.0mmol/L (3.5-5.1) Chloride Level 103mmol/L (98-107) Carbon Dioxide Level 31mmol/L (21-32) Anion Gap 6 (6-14) Blood Urea Nitrogen 20mg/dL (7-20) Creatinine 1.2mg/dL (0.6-1.0) Estimated GFR (Cockcroft-Gault) 43.9 BUN/Creatinine Ratio 17 (6-20) Glucose Level 176mg/dL (70-99) Calcium Level 9.2mg/dL (8.5-10.1) Total Bilirubin 0.1mg/dL (0.2-1.0) Aspartate Amino Transf (AST/SGOT) 15U/L (15-37) Alanine Aminotransferase (ALT/SGPT) 20U/L (14-59) Alkaline Phosphatase 103U/L (46-116) Troponin I Quantitative < 0.017ng/mL (0.000-0.055) Total Protein 7.3g/dL (6.4-8.2) Albumin 3.0g/dL (3.4-5.0) Albumin/Globulin Ratio 0.7 (1.0-1.7) Lipase 117U/L (73-393) Influenza Type A Antigen Negative (NEGATIVE) Influenza Type B Antigen Negative (NEGATIVE) Lactic Acid Level 1.7mmol/L (0.4-2.0) Urine Collection Type Unknown Urine Color Yellow Urine Clarity Cloudy Urine pH 5.5 Urine Specific [place] 1.015 Urine Protein Negativemg/dL (NEG-TRACE) Urine Glucose (UA) Negativemg/dL (NEG) Urine Ketones (Stick) Negativemg/dL (NEG) Urine Blood Negative (NEG) Urine Nitrite Negative (NEG) Urine Bilirubin Negative (NEG) Urine Urobilinogen Dipstick 0.2mg/dL (0.2 mg/dL) Urine Leukocyte Esterase Negative (NEG) Urine RBC Occ/HPF (0-2) Urine WBC 1-4/HPF (0-4) Urine Squamous Epithelial Cells Mod/LPF Urine Bacteria Moderate/HPF (0-FEW) Urine Hyaline Casts Few/HPF Urine Mucus Slight/LPF Urine Opiates Screen Pos (NEG) Urine Methadone Screen Neg (NEG) Urine Barbiturates Neg (NEG) Urine Phencyclidine Screen Neg (NEG) Urine Amphetamine/Methamphetamine Neg (NEG) Urine Benzodiazepines Screen Neg (NEG) Urine Cocaine Screen Neg (NEG) Urine Cannabinoids Screen Neg (NEG) Urine Ethyl Alcohol Neg (NEG) Test 10/09/16 03:00 10/09/16 08:35 10/09/16 08:47 10/09/16 11:42 Troponin I Quantitative < 0.017ng/mL (0.000-0.055) < 0.017ng/mL (0.000-0.055) Glucose (Fingerstick) 124mg/dL (70-99) 115mg/dL (70-99) Thyroid Stimulating Hormone (TSH) 0.349uIU/mL (0.358-3.74) Laboratory Tests Test 10/08/16 20:40 10/08/16 22:36 10/08/16 22:37 10/08/16 22:50 White Blood Count 14.9x10^3/uL (4.0-11.0) Red Blood Count 4.06x10^6/uL (3.50-5.40) Hemoglobin 11.5g/dL (12.0-15.5) Hematocrit 36.7% (36.0-47.0) Mean Corpuscular Volume 91fL (79-100) Mean Corpuscular Hemoglobin 28pg (25-35) Mean Corpuscular Hemoglobin Concent 31g/dL (31-37) Red Cell Distribution Width 16.5% (11.5-14.5) Platelet Count 364x10^3/uL (140-400) Neutrophils (%) (Auto) 76% (31-73) Lymphocytes (%) (Auto) 18% (24-48) Monocytes (%) (Auto) 5% (0-9) Eosinophils (%) (Auto) 0% (0-3) Basophils (%) (Auto) 1% (0-3) Neutrophils # (Auto) 11.3x10^3uL (1.8-7.7) Lymphocytes # (Auto) 2.6x10^3/uL (1.0-4.8) Monocytes # (Auto) 0.8x10^3/uL (0.0-1.1) Eosinophils # (Auto) 0.0x10^3/uL (0.0-0.7) Basophils # (Auto) 0.2x10^3/uL (0.0-0.2) Prothrombin Time 13.0SEC (11.7-14.0) Prothromb Time International Ratio 1.0 (0.8-1.1) Activated Partial Thromboplast Time 30SEC (24-38) Sodium Level 140mmol/L (136-145) Potassium Level 4.0mmol/L (3.5-5.1) Chloride Level 103mmol/L (98-107) Carbon Dioxide Level 31mmol/L (21-32) Anion Gap 6 (6-14) Blood Urea Nitrogen 20mg/dL (7-20) Creatinine 1.2mg/dL (0.6-1.0) Estimated GFR (Cockcroft-Gault) 43.9 BUN/Creatinine Ratio 17 (6-20) Glucose Level 176mg/dL (70-99) Calcium Level 9.2mg/dL (8.5-10.1) Total Bilirubin 0.1mg/dL (0.2-1.0) Aspartate Amino Transf (AST/SGOT) 15U/L (15-37) Alanine Aminotransferase (ALT/SGPT) 20U/L (14-59) Alkaline Phosphatase 103U/L (46-116) Troponin I Quantitative < 0.017ng/mL (0.000-0.055) Total Protein 7.3g/dL (6.4-8.2) Albumin 3.0g/dL (3.4-5.0) Albumin/Globulin Ratio 0.7 (1.0-1.7) Lipase 117U/L (73-393) Influenza Type A Antigen Negative (NEGATIVE) Influenza Type B Antigen Negative (NEGATIVE) Lactic Acid Level 1.7mmol/L (0.4-2.0) Urine Collection Type Unknown Urine Color Yellow Urine Clarity Cloudy Urine pH 5.5 Urine Specific [place] 1.015 Urine Protein Negativemg/dL (NEG-TRACE) Urine Glucose (UA) Negativemg/dL (NEG) Urine Ketones (Stick) Negativemg/dL (NEG) Urine Blood Negative (NEG) Urine Nitrite Negative (NEG) Urine Bilirubin Negative (NEG) Urine Urobilinogen Dipstick 0.2mg/dL (0.2 mg/dL) Urine Leukocyte Esterase Negative (NEG) Urine RBC Occ/HPF (0-2) Urine WBC 1-4/HPF (0-4) Urine Squamous Epithelial Cells Mod/LPF Urine Bacteria Moderate/HPF (0-FEW) Urine Hyaline Casts Few/HPF Urine Mucus Slight/LPF Urine Opiates Screen Pos (NEG) Urine Methadone Screen Neg (NEG) Urine Barbiturates Neg (NEG) Urine Phencyclidine Screen Neg (NEG) Urine Amphetamine/Methamphetamine Neg (NEG) Urine Benzodiazepines Screen Neg (NEG) Urine Cocaine Screen Neg (NEG) Urine Cannabinoids Screen Neg (NEG) Urine Ethyl Alcohol Neg (NEG) Test 10/09/16 03:00 10/09/16 08:35 10/09/16 08:47 10/09/16 11:42 Troponin I Quantitative < 0.017ng/mL (0.000-0.055) < 0.017ng/mL (0.000-0.055) Glucose (Fingerstick) 124mg/dL (70-99) 115mg/dL (70-99) Thyroid Stimulating Hormone (TSH) 0.349uIU/mL (0.358-3.74) Images Images CT head: No acute intracranial hemorrhage or midline shift or mass-effect or hydrocephalus or extra-axial fluid collection is seen. No focal hypodense area is seen to indicate an acute infarct or edema radiographically. No skull fracture or pneumocephalus is seen. No opacification of the mastoid sinuses or the paranasal sinuses is seen. The maxillary sinuses are not completely seen in this study. IMPRESSION No acute intracranial abnormality is seen. Assessment/Plan Assessment/Plan Impression: Vertigo, rule out central cause, but suspect it's peripheral Diabetic neuropathy with gait disorder Post-herpetic neuralgia Cardiac disease. Recommendation: MRI brain CT angiogram Outpatient ENT evaluation Aim for discharge tomorrow Thank you for letting me help with patient's care. GRACE BURTON MD Oct 09, 2016 17:48
[2016-10-09] MEDS ORDERED: LIDOCAINE (700MG/PATCH) PATCH. TD ONE (18:30)
[2016-10-09] MEDS ORDERED: BUMETANIDE 1 MG TABLET PO SCH (21:00)
[2016-10-09] MEDS ORDERED: FLUTICASONE IH SCH (21:00)
[2016-10-09] MEDS ORDERED: ATORVASTATIN CALCIUM 10 MG TABLET. PO SCH (21:00)
[2016-10-09] MEDS ORDERED: SALMETEROL IH SCH (21:00)
[2016-10-09] MEDS ORDERED: ATORVASTATIN CALCIUM 40 MG TABLET. PO SCH (21:00)
[2016-10-09] MEDS: ENOXAPARIN 40 MG/0.4 ML DISP.SYRIN. SQ SCH (21:28)
[2016-10-09] MEDS: MECLIZINE HCL 12.5 MG TABLET. PO SCH (21:29)
[2016-10-09] MEDS: GABAPENTIN 100 MG CAPSULE. PO SCH (21:29)
[2016-10-09] MEDS: ALLOPURINOL 100 MG TABLET. PO SCH (21:29)
[2016-10-09 22:14] LABS: THYROXINE 5.6 ug/dL (4.5-12.0)
[2016-10-09] MEDS: ONDANSETRON ODT 4 MG TAB.RAPDIS PO SCH (23:55)
[2016-10-10 03:40] VITALS: BP 148/86
[2016-10-10 05:18] LABS: BASO # 0.1 x10^3/uL (0.0-0.2); BASO % 1 % (0-3); EOS % 1 % (0-3); HEMATOCRIT 35.4 % (36.0-47.0); LYMPH # 3.6 x10^3/uL (1.0-4.8); LYMPH % 33 % (24-48); MEAN CORPUSCULAR HEMOGLOBIN 28 pg (25-35); MEAN CORPUSCULAR HGB CONC 31 g/dL (31-37); MEAN CORPUSCULAR VOLUME 91 fL (79-100); MONO % 6 % (0-9); NEUT % 60 % (31-73); PLATELET COUNT 348 x10^3/uL (140-400); RED BLOOD COUNT 3.89 x10^6/uL (3.50-5.40); RED CELL DISTRIBUTION WIDTH 16.5 % (11.5-14.5); WHITE BLOOD COUNT 11.1 x10^3/uL (4.0-11.0)
[2016-10-10 05:25] LABS: CALCIUM 9.3 mg/dL (8.5-10.1); CREATININE 1.2 mg/dL (0.6-1.0); GFR 53.1
[2016-10-10] MEDS: ONDANSETRON ODT 4 MG TAB.RAPDIS PO SCH ×2 (06:01→14:00)
[2016-10-10 07:30] VITALS: BP 126/63
[2016-10-10] MEDS ORDERED: PANTOPRAZOLE 40 MG TABLET. PO SCH ×2 (07:30)
[2016-10-10] MEDS: IPRATRPIUM/ALBUTEROL 0.5/2.5MG 3 ML NEBU. NEB SCH (07:47)
[2016-10-10] MEDS: INSULIN ASPART 300 UNITS/3 ML INSULN.PEN SQ SCH ×2 (08:00→12:00)
--- NOTE | 2016-10-10 08:13 | PDOC ---
PROGRESS NOTES Assessment Problems Medical Problems: (1) Syncope Status: Acute Vertigo, rule out central cause, but suspect it's peripheral Diabetic neuropathy with gait disorder Post-herpetic neuralgia Cardiac disease. Plan Await MRI brain and CT angiogram Outpatient ENT evaluation Okay discharge today Subjective no complaints, denies dizziness Objective Vital Signs Date Time Temp Pulse Resp B/P Pulse Ox O2 Delivery O2 Flow Rate FiO2 10/10/16 07:49 96 Nasal Cannula 2.0 10/10/16 03:40 97.9 90 14 148/86 97.9 Intake and Output 10/10/16 07:00 Output Total 800 ml Balance -800 ml Output Urine Total 800 ml # Voids 1 PHYSICAL EXAM Asleep, alerts easily. Oriented to time, place and person. PERRL. EOMI. CN: no focal findings. Muscle tone: normal. Muscle strength: 5/5 DTR: 1+ Plantar reflex: flexor Gait: not examined in bed. Sensory exam: stocking loss. No cerebellar signs elicited. Review of Relevant I have reviewed the following items rolf (where applicable) has been applied. Labs Laboratory Tests Test 10/08/16 20:40 10/08/16 22:36 10/08/16 22:37 10/08/16 22:50 White Blood Count 14.9x10^3/uL (4.0-11.0) Red Blood Count 4.06x10^6/uL (3.50-5.40) Hemoglobin 11.5g/dL (12.0-15.5) Hematocrit 36.7% (36.0-47.0) Mean Corpuscular Volume 91fL (79-100) Mean Corpuscular Hemoglobin 28pg (25-35) Mean Corpuscular Hemoglobin Concent 31g/dL (31-37) Red Cell Distribution Width 16.5% (11.5-14.5) Platelet Count 364x10^3/uL (140-400) Neutrophils (%) (Auto) 76% (31-73) Lymphocytes (%) (Auto) 18% (24-48) Monocytes (%) (Auto) 5% (0-9) Eosinophils (%) (Auto) 0% (0-3) Basophils (%) (Auto) 1% (0-3) Neutrophils # (Auto) 11.3x10^3uL (1.8-7.7) Lymphocytes # (Auto) 2.6x10^3/uL (1.0-4.8) Monocytes # (Auto) 0.8x10^3/uL (0.0-1.1) Eosinophils # (Auto) 0.0x10^3/uL (0.0-0.7) Basophils # (Auto) 0.2x10^3/uL (0.0-0.2) Prothrombin Time 13.0SEC (11.7-14.0) Prothromb Time International Ratio 1.0 (0.8-1.1) Activated Partial Thromboplast Time 30SEC (24-38) Sodium Level 140mmol/L (136-145) Potassium Level 4.0mmol/L (3.5-5.1) Chloride Level 103mmol/L (98-107) Carbon Dioxide Level 31mmol/L (21-32) Anion Gap 6 (6-14) Blood Urea Nitrogen 20mg/dL (7-20) Creatinine 1.2mg/dL (0.6-1.0) Estimated GFR (Cockcroft-Gault) 43.9 BUN/Creatinine Ratio 17 (6-20) Glucose Level 176mg/dL (70-99) Calcium Level 9.2mg/dL (8.5-10.1) Total Bilirubin 0.1mg/dL (0.2-1.0) Aspartate Amino Transf (AST/SGOT) 15U/L (15-37) Alanine Aminotransferase (ALT/SGPT) 20U/L (14-59) Alkaline Phosphatase 103U/L (46-116) Troponin I Quantitative < 0.017ng/mL (0.000-0.055) Total Protein 7.3g/dL (6.4-8.2) Albumin 3.0g/dL (3.4-5.0) Albumin/Globulin Ratio 0.7 (1.0-1.7) Lipase 117U/L (73-393) Influenza Type A Antigen Negative (NEGATIVE) Influenza Type B Antigen Negative (NEGATIVE) Lactic Acid Level 1.7mmol/L (0.4-2.0) Urine Collection Type Unknown Urine Color Yellow Urine Clarity Cloudy Urine pH 5.5 Urine Specific [place] 1.015 Urine Protein Negativemg/dL (NEG-TRACE) Urine Glucose (UA) Negativemg/dL (NEG) Urine Ketones (Stick) Negativemg/dL (NEG) Urine Blood Negative (NEG) Urine Nitrite Negative (NEG) Urine Bilirubin Negative (NEG) Urine Urobilinogen Dipstick 0.2mg/dL (0.2 mg/dL) Urine Leukocyte Esterase Negative (NEG) Urine RBC Occ/HPF (0-2) Urine WBC 1-4/HPF (0-4) Urine Squamous Epithelial Cells Mod/LPF Urine Bacteria Moderate/HPF (0-FEW) Urine Hyaline Casts Few/HPF Urine Mucus Slight/LPF Urine Opiates Screen Pos (NEG) Urine Methadone Screen Neg (NEG) Urine Barbiturates Neg (NEG) Urine Phencyclidine Screen Neg (NEG) Urine Amphetamine/Methamphetamine Neg (NEG) Urine Benzodiazepines Screen Neg (NEG) Urine Cocaine Screen Neg (NEG) Urine Cannabinoids Screen Neg (NEG) Urine Ethyl Alcohol Neg (NEG) Test 10/09/16 03:00 10/09/16 08:35 10/09/16 08:47 10/09/16 11:42 Troponin I Quantitative < 0.017ng/mL (0.000-0.055) < 0.017ng/mL (0.000-0.055) Glucose (Fingerstick) 124mg/dL (70-99) 115mg/dL (70-99) Thyroid Stimulating Hormone (TSH) 0.349uIU/mL (0.358-3.74) Thyroxine (T4) 5.6ug/dL (4.5-12.0) Total Triiodothyronine 94ng/dL (71-180) Test 10/09/16 17:25 10/09/16 20:52 10/10/16 05:00 Glucose (Fingerstick) 123mg/dL (70-99) 125mg/dL (70-99) White Blood Count 11.1x10^3/uL (4.0-11.0) Red Blood Count 3.89x10^6/uL (3.50-5.40) Hemoglobin 11.0g/dL (12.0-15.5) Hematocrit 35.4% (36.0-47.0) Mean Corpuscular Volume 91fL (79-100) Mean Corpuscular Hemoglobin 28pg (25-35) Mean Corpuscular Hemoglobin Concent 31g/dL (31-37) Red Cell Distribution Width 16.5% (11.5-14.5) Platelet Count 348x10^3/uL (140-400) Neutrophils (%) (Auto) 60% (31-73) Lymphocytes (%) (Auto) 33% (24-48) Monocytes (%) (Auto) 6% (0-9) Eosinophils (%) (Auto) 1% (0-3) Basophils (%) (Auto) 1% (0-3) Neutrophils # (Auto) 6.7x10^3uL (1.8-7.7) Lymphocytes # (Auto) 3.6x10^3/uL (1.0-4.8) Monocytes # (Auto) 0.6x10^3/uL (0.0-1.1) Eosinophils # (Auto) 0.1x10^3/uL (0.0-0.7) Basophils # (Auto) 0.1x10^3/uL (0.0-0.2) Sodium Level 145mmol/L (136-145) Potassium Level 4.0mmol/L (3.5-5.1) Chloride Level 107mmol/L (98-107) Carbon Dioxide Level 32mmol/L (21-32) Anion Gap 6 (6-14) Blood Urea Nitrogen 15mg/dL (7-20) Creatinine 1.2mg/dL (0.6-1.0) Estimated GFR (Cockcroft-Gault) 53.1 Glucose Level 114mg/dL (70-99) Calcium Level 9.3mg/dL (8.5-10.1) Free Thyroxine 0.94ng/dL (0.76-1.46) Laboratory Tests Test 10/09/16 08:35 10/09/16 08:47 10/09/16 11:42 10/09/16 17:25 Glucose (Fingerstick) 124mg/dL (70-99) 115mg/dL (70-99) 123mg/dL (70-99) Troponin I Quantitative < 0.017ng/mL (0.000-0.055) Thyroid Stimulating Hormone (TSH) 0.349uIU/mL (0.358-3.74) Thyroxine (T4) 5.6ug/dL (4.5-12.0) Total Triiodothyronine 94ng/dL (71-180) Test 10/09/16 20:52 10/10/16 05:00 Glucose (Fingerstick) 125mg/dL (70-99) White Blood Count 11.1x10^3/uL (4.0-11.0) Red Blood Count 3.89x10^6/uL (3.50-5.40) Hemoglobin 11.0g/dL (12.0-15.5) Hematocrit 35.4% (36.0-47.0) Mean Corpuscular Volume 91fL (79-100) Mean Corpuscular Hemoglobin 28pg (25-35) Mean Corpuscular Hemoglobin Concent 31g/dL (31-37) Red Cell Distribution Width 16.5% (11.5-14.5) Platelet Count 348x10^3/uL (140-400) Neutrophils (%) (Auto) 60% (31-73) Lymphocytes (%) (Auto) 33% (24-48) Monocytes (%) (Auto) 6% (0-9) Eosinophils (%) (Auto) 1% (0-3) Basophils (%) (Auto) 1% (0-3) Neutrophils # (Auto) 6.7x10^3uL (1.8-7.7) Lymphocytes # (Auto) 3.6x10^3/uL (1.0-4.8) Monocytes # (Auto) 0.6x10^3/uL (0.0-1.1) Eosinophils # (Auto) 0.1x10^3/uL (0.0-0.7) Basophils # (Auto) 0.1x10^3/uL (0.0-0.2) Sodium Level 145mmol/L (136-145) Potassium Level 4.0mmol/L (3.5-5.1) Chloride Level 107mmol/L (98-107) Carbon Dioxide Level 32mmol/L (21-32) Anion Gap 6 (6-14) Blood Urea Nitrogen 15mg/dL (7-20) Creatinine 1.2mg/dL (0.6-1.0) Estimated GFR (Cockcroft-Gault) 53.1 Glucose Level 114mg/dL (70-99) Calcium Level 9.3mg/dL (8.5-10.1) Free Thyroxine 0.94ng/dL (0.76-1.46) Medications Current Medications Ondansetron HCl (Zofran) 4 mg 1X ONCE IV Last administered on 10/08/16 21:29 ; Start 10/08/16 at 21:30; Stop 10/08/16 at 21:31; Status DC Acetaminophen (Tylenol) 650 mg PRN Q4HRS PRN PO FEVER Last administered on 10/09 13:29; Start 10/09/16 at 01:00; Stop 10/10/16 at 00:59; Status DC Albuterol/ Ipratropium (Duoneb) 3 ml RTQID NEB Last administered on 10/10/16 07:47; Start 10/09/16 at 08:00; Stop 10/10/16 at 07:59; Status DC Insulin Aspart (Novolog) 0-5 UNITS TIDWMEALS SQ ; Start 10/09/16 at 08:00 Dextrose 12.5 gm PRN Q15MIN PRN IV SEE COMMENTS; Start 10/09/16 at 01:00 Amlodipine Besylate (Norvasc) 5 mg DAILY PO Last administered on 10/09/16 13: 29; Start 10/09/16 at 12:00; Stop 10/09/16 at 13:48; Status DC Aspirin (Ecotrin) 81 mg DAILYWBKFT PO ; Start 10/09/16 at 13:45 Atorvastatin Calcium (Lipitor) 40 mg QHS PO Last administered on 10/09/16 21: 31; Start 10/09/16 at 21:00 Bumetanide (Bumex) 2 mg BID92 PO ; Start 10/09/16 at 14:00 Metoprolol Succinate (Toprol Xl) 50 mg DAILY PO ; Start 10/09/16 at 13:45 Potassium Chloride (Klor-Con) 20 meq DAILY PO ; Start 10/09/16 at 13:45 Spironolactone (Aldactone) 25 mg DAILY PO ; Start 10/09/16 at 13:45 Pantoprazole Sodium (Protonix) 40 mg DAILYAC PO ; Start 10/10/16 at 07:30 Allopurinol (Zyloprim) 100 mg BID PO Last administered on 10/09/16 21:29; Start 10/09/16 at 21:00 Aspirin (Children'S Aspirin) 81 mg DAILY PO ; Start 10/10/16 at 09:00; Status UNV Atorvastatin Calcium (Lipitor) 40 mg HS PO ; Start 10/09/16 at 21:00; Status UNV Bumetanide (Bumex) 2 mg BID PO ; Start 10/09/16 at 21:00; Status UNV Albuterol Sulfate (Ventolin Neb Soln) 2.5 mg PRN Q6HRS PRN NEB WHEEZINGE; Start 10/09/16 at 16:00 Non-Formulary Medication 2 inh BID IH ; Start 10/09/16 at 21:00; Status UNV Hydralazine HCl (Apresoline) 10 mg PRN Q4HRS PRN IVP ELEVATED BP, SEE COMMENTS ; Start 10/09/16 at 16:00 Acetaminophen (Tylenol) 650 mg PRN Q6HRS PRN PO MILD PAIN / TEMP; Start at 16:00 Ondansetron HCl (Zofran) 4 mg PRN Q6HRS PRN IV NAUSEA/VOMITING; Start 10/09/16 at 16:00 Meclizine HCl (Antivert) 12.5 mg PRN Q6HRS PRN PO DIZZINESS; Start 10/09/16 at 16:00 Enoxaparin Sodium (Lovenox 40mg Syringe) 40 mg Q12H SQ Last administered on 21:28; Start 10/09/16 at 21:00 Gabapentin (Neurontin) 100 mg TID PO Last administered on 10/09/16 21:29; Start 10/09/16 at 21:00 Acetaminophen/ Hydrocodone Bitart (Lortab 5/325) 1 tab PRN Q4HRS PRN PO PAIN; Start 10/09/16 at 16:00 Lidocaine (Lidoderm) 1 patch DAILY TP ; Start 10/10/16 at 09:00 Ondansetron HCl (Zofran Odt) 4 mg Q8HRS PO Last administered on 10/10/16 06:01 ; Start 10/09/16 at 22:00 Pantoprazole Sodium (Protonix) 40 mg DAILYAC PO ; Start 10/10/16 at 07:30; Stop 10/10/16 at 07:30; Status DC Meclizine HCl (Antivert) 25 mg TID PO Last administered on 10/09/16 21:29; Start 10/09/16 at 21:00 Sertraline HCl (Zoloft) 100 mg DAILY PO ; Start 10/10/16 at 09:00 Lidocaine (Lidoderm) 1 patch 1X ONCE TD Last administered on 10/09/16 21:32; Start 10/09/16 at 18:30; Stop 10/09/16 at 18:31; Status DC Active Scripts Active Reported Zofran Odt (Ondansetron) 4 Mg Tab.rapdis 1 Tab SL Q8HRS Spironolactone 25 Mg Tablet 1 Tab PO DAILY Spiriva (Tiotropium [place]) 18 Mcg Cap.w.dev 1 Cap IH DAILY Zoloft (Sertraline Hcl) 100 Mg Tablet 1 Tab PO DAILY Protonix (Pantoprazole Sodium) 40 Mg Tablet.dr 1 Tab PO DAILY Potassium Chloride 10 Meq Capsule.er 20 Meq PO DAILY Metoprolol Succinate ( Xl ) (Metoprolol Succinate) 25 Mg Tab.er.24h 50 Mg PO DAILY Meclizine Hcl 25 Mg Tablet 1 Tab PO TID Lidoderm (Lidocaine) 700 Mg Adh..patch 1 Patch TP DAILY Compazine (Prochlorperazine Maleate) 10 Mg Tablet 10 Mg PO PRN Q6-8HRS PRN Bumetanide 1 Mg Tablet 2 Tab PO BID Atorvastatin Calcium 40 Mg Tablet 40 Mg PO HS Aspirin 81 Mg Tab.chew 1 Tab PO DAILY Allopurinol 100 Mg Tablet 1 Tab PO BID Proair Respiclick (Albuterol Sulfate) 90 Mcg Aer.pow.ba 1 Puff IH PRN Q6HRS PRN Advair Hfa 115-21 Mcg Inhaler (Fluticasone/Salmeterol) 12 Gm Hfa.aer.ad 2 Inh IH BID Unable To Obtain Meds From Prior To Admit (Info) Each 1 Each Vitals/I & O Vital Sign - Last 24 Hours 10/09/16 10/09/16 10/09/16 10/09/16 08:25 11:00 12:01 13:29 Pulse 72 72 Resp 22 B/P 139/65 141/60 134/72 141/60 Pulse Ox 98 O2 Delivery Nasal Cannula Nasal Cannula O2 Flow Rate 2.0 2.0 10/09/16 10/09/16 10/09/16 10/09/16 15:00 16:00 19:10 19:40 Temp 98.0 98.4 98.0 98.4 Pulse 83 82 Resp 22 18 B/P 160/71 147/39 Pulse Ox 98 100 99 O2 Delivery Nasal Cannula Nasal Cannula Nasal Cannula Nasal Cannula O2 Flow Rate 2.0 2.0 2.0 10/09/16 10/09/16 10/10/16 10/10/16 20:00 23:40 03:40 07:49 Temp 98.7 97.9 98.7 97.9 Pulse 84 90 Resp 16 14 B/P 146/66 148/86 Pulse Ox 98 97 96 O2 Delivery Nasal Cannula Nasal Cannula Nasal Cannula O2 Flow Rate 2.0 2.0 2.0 2.0 Intake and Output 10/09/16 10/09/16 10/10/16 15:00 23:00 07:00 Output Total 200 ml 600 ml Balance -200 ml -600 ml GRACE BURTON MD Oct 10, 2016 08:13
[2016-10-10] MEDS ORDERED: CONTRAST GIVEN MC PRN (08:45)
[2016-10-10] MEDS ORDERED: IOHEXOL 300 MG/ML 75 ML VIAL IV ONE (08:45)
[2016-10-10] MEDS ORDERED: ASPIRIN 81 MG TAB.CHEW PO SCH (09:00)
[2016-10-10] MEDS ORDERED: LIDOCAINE (700MG/PATCH) PATCH. TP SCH (09:00)
[2016-10-10] MEDS ORDERED: SERTRALINE 50 MG TABLET. PO SCH (09:00)
[2016-10-10] MEDS: BUMETANIDE 1 MG TABLET PO SCH ×2 (10:07→15:18)
[2016-10-10] MEDS: SPIRONOLACTONE 25 MG TABLET PO SCH (10:08)
[2016-10-10] MEDS: ALLOPURINOL 100 MG TABLET. PO SCH (10:09)
[2016-10-10] MEDS: ASPIRIN ENTERIC COATED 81 MG TABLET.DR. PO SCH (10:09)
[2016-10-10] MEDS: POTASSIUM CHLORIDE 20 MEQ TABLET.ER. PO SCH (10:09)
[2016-10-10] MEDS: GABAPENTIN 100 MG CAPSULE. PO SCH ×2 (10:09→15:19)
[2016-10-10] MEDS: METOPROLOL SUCC 24HR ER 50 MG TAB.ER.24H. PO SCH (10:09)
[2016-10-10] MEDS: ENOXAPARIN 40 MG/0.4 ML DISP.SYRIN. SQ SCH (10:10)
[2016-10-10] MEDS: MECLIZINE HCL 12.5 MG TABLET. PO SCH ×2 (10:10→15:19)
[2016-10-10 11:14] VITALS: BP 141/80
[2016-10-10] MEDS ORDERED: MECL25TA3 PO (11:21)
[2016-10-10] MEDS ORDERED: GABA-585 PO (11:21)
--- NOTE | 2016-10-10 11:23 | RAD ---
PROCEDURE MRI of the brain without contrast 10/10/2016 HISTORY Dizziness and weakness. TECHNIQUE Unenhanced T1 weighted sagittal and axial, T2 weighted axial and coronal and FLAIR, gradient echo and diffusion weighted axial images of the brain were obtained. FINDINGS Comparison is made the patient's CT scan of head dated 10/08/2016. There is generalized parenchymal atrophy. Patchy and several small scattered areas of increased signal intensity are seen within the periventricular and subcortical white matter of both cerebral hemispheres along with the yarely on the FLAIR and T2 weighted images consistent with areas of small vessel ischemic disease. No acute parenchymal abnormality is seen. No extra-axial fluid collection is noted. There is no MRI evidence of acute ischemia/infarction. The paranasal sinuses are essentially clear. Normal flow voids are seen within the major vascular structures surrounding the brain parenchyma. IMPRESSION No acute parenchymal abnormality is seen. Electronically signed by: Bijan Lopez MD (Oct 10, 2016 11:23:01)
--- NOTE | 2016-10-10 12:33 | RAD ---
CTA of the head and neck with contrast, 10/10/2016: History: Syncope, vertigo Multidetector CT imaging was performed prior to and following an IV bolus injection of iodinated contrast material. The precontrast scans were obtained for subtraction purposes. Multiplanar reconstructions were produced as well as 3-D volume rendered reconstructions of the major arteries. The images are of suboptimal quality due to multiple streak and motion related artifacts. The common carotid arteries are widely patent. There is mild calcific plaquing at both carotid bifurcations without significant stenosis of the carotid bulbs or proximal internal carotid arteries. There is approximately 50% luminal narrowing of the left external carotid artery origin due to calcific plaquing. The internal carotid arteries in the neck are widely patent up through the level of the [place]. The anterior cerebral and middle cerebral arteries and their major branches are unremarkable. The vertebral artery origins were not clearly visualize due to various artifacts. The vertebral arteries in the neck are patent up through their junction with the basilar artery. The basilar artery is unremarkable. There are patent posterior communicating arteries bilaterally. The posterior cerebral arteries are unremarkable. IMPRESSION: 1. Mild atherosclerotic plaquing at both carotid bifurcations without evidence of hemodynamically significant stenosis. 2. The major intracranial arteries are unremarkable.
--- NOTE | 2016-10-10 14:06 | PDOC3 ---
Discharge Summary [facility] Date of Admission: Oct 09, 2016 Discharge Date: Oct 10, 2016 Admitting Diagnosis 1. 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 h/o CHF stable 3. copd, stable 4. dm2 5. htn uncontrolled 6. obesity 7. headache , post shingles neuralgia 8. SIRS WITH leukocytosis Problems: Final Diagnosis Problems Medical Problems: (1) Syncope Status: Acute CONSULTS neuro card Brief Hospital Course 75yo F, comes for vertigo. She said she has been feeling dizziness for a few days, with room spinning around, especially when turning head, with N/V and syncoped. she also c/o chest pain, intermittent, cannot tell me details, no radiation. with some sob. also had h/o left forehead shingles, since then headache. pt actually was taking meclizine before, resumed and it helped. orthostatic hypotension neg. Neuro consulted, MRI, CTA NEG. DC HOME with meclazine and gabapentin, PTOT dc time 35min GEN.: No apparent distress. Alert and oriented. HEENT: Head is normocephalic, atraumatic NECK: Supple. LUNGS: Clear to auscultation. HEART: RRR, S1, S2 present. Peripheral pulses intact ABDOMEN: Soft, nontender. Positive bowel sounds. EXTREMITIES: Without any cyanosis. NEUROLOGIC: Normal speech, normal tone PSYCHIATRIC: Normal affect, normal mood. SKIN: No ulcerations Patient History: Problems: Disposition HH CONDITION AT DISCHARGE: Improved Diet cardiac Scheduled Allopurinol (Allopurinol) 1 TAB PO BID (Reported) Aspirin (Aspirin) 1 TAB PO DAILY (Reported) Atorvastatin Calcium (Atorvastatin Calcium) 40 MG PO HS (Reported) Bumetanide (Bumetanide) 2 TAB PO BID (Reported) Fluticasone/Salmeterol (Advair Hfa 115-21 Mcg Inhaler) 2 INH IH BID (Reported) Gabapentin (Gabapentin) 100 MG PO TID Lidocaine (Lidoderm) 1 PATCH TP DAILY (Reported) Meclizine Hcl (Meclizine Hcl) 1 TAB PO TID Metoprolol Succinate (Metoprolol Succinate ( Xl )) 50 MG PO DAILY (Reported) Ondansetron (Zofran Odt) 1 TAB SL Q8HRS (Reported) Pantoprazole Sodium (Protonix) 1 TAB PO DAILY (Reported) Potassium Chloride (Potassium Chloride) 20 MEQ PO DAILY (Reported) Sertraline Hcl (Zoloft) 1 TAB PO DAILY (Reported) Spironolactone (Spironolactone) 1 TAB PO DAILY (Reported) Tiotropium [place] (Spiriva) 1 CAP IH DAILY (Reported) Scheduled PRN Albuterol Sulfate (Proair Respiclick) 1 PUFF IH PRN Q6HRS PRN PRN SHORTNESS OF BREATH (Reported) Prochlorperazine Maleate (Compazine) 10 MG PO PRN Q6-8HRS PRN PRN NAUSEA ( Reported) Miscellaneous Medications Info (Unable To Obtain Meds From Prior To Admit) 1 EACH MC (Reported) Follow Up pcp in 2 weeks DIEGO LEMUS MD Oct 10, 2016 14:06
== END 2016-10-10 17:24 | disposition home health service (06) | DRG 149 ==
LOC: ER 20:11 → 2 SOUTH 10-09 00:19
PROVIDERS: ADMIT Internal Medicine; ATTEND Internal Medicine
DX: H81.10 Benign paroxysmal vertigo, unspecified ear (principal); B02.29 Other postherpetic nervous system involvement; Z68.41 Body mass index [BMI] 40.0-44.9, adult; I13.0 Hypertensive heart and chronic kidney disease with heart failure and stage 1 through stage 4 chronic kidney disease, or unspecified chronic kidney disease; R65.10 Systemic inflammatory response syndrome (SIRS) of non-infectious origin without acute organ dysfunction; D50.9 Iron deficiency anemia, unspecified; E11.22 Type 2 diabetes mellitus with diabetic chronic kidney disease; E66.01 Morbid (severe) obesity due to excess calories; E78.5 Hyperlipidemia, unspecified; F32.9 Major depressive disorder, single episode, unspecified; F41.9 Anxiety disorder, unspecified; G47.33 Obstructive sleep apnea (adult) (pediatric); E11.42 Type 2 diabetes mellitus with diabetic polyneuropathy; H35.341 Macular cyst, hole, or pseudohole, right eye; H93.19 Tinnitus, unspecified ear; I25.10 Atherosclerotic heart disease of native coronary artery without angina pectoris; I35.8 Other nonrheumatic aortic valve disorders; I50.9 Heart failure, unspecified; J44.9 Chronic obstructive pulmonary disease, unspecified; J45.909 Unspecified asthma, uncomplicated; K21.9 Gastro-esophageal reflux disease without esophagitis; N18.3 Chronic kidney disease, stage 3 (moderate); Z72.0 Tobacco use; Z82.49 Family history of ischemic heart disease and other diseases of the circulatory system; Z86.73 Personal history of transient ischemic attack (TIA), and cerebral infarction without residual deficits
CPT/HCPCS: 36415; 70450; 70496; 70498; 70551; 74022; 80048; 80053; 81001; 82947; 83605; 83690; 84436; 84439; 84443; 84480; 84484; 85027; 85610; 85730; 87086; 87804; 93005; 94640; 96374; G0481; J1650; J1815; J2405; J7620; J8597; Q0162; Q9967; 99285-25

== ENCOUNTER 2017-09-16 15:23 | Emergency (ER) | payer OTHER ==
[2017-09-16 17:49] LABS: ADD MAN DIFF? NO
[2017-09-16 17:51] LABS: BASO # 0.2 x10^3/uL (0.0-0.2); BASO % 2 % (0-3); EOS # 0.3 x10^3/uL (0.0-0.7); EOS % 3 % (0-3); HEMOGLOBIN 11.4 g/dL (12.0-15.5); LYMPH # 3.8 x10^3/uL (1.0-4.8); LYMPH % 35 % (24-48); MEAN CORPUSCULAR HEMOGLOBIN 29 pg (25-35); MEAN CORPUSCULAR HGB CONC 33 g/dL (31-37); MEAN CORPUSCULAR VOLUME 88 fL (79-100); MONO # 0.8 x10^3/uL (0.0-1.1); MONO % 8 % (0-9); NEUT # 5.7 x10^3uL (1.8-7.7); NEUT % 53 % (31-73); PLATELET COUNT 363 x10^3/uL (140-400); RED BLOOD COUNT 3.99 x10^6/uL (3.50-5.40); RED CELL DISTRIBUTION WIDTH 15.5 % (11.5-14.5); WHITE BLOOD COUNT 10.8 x10^3/uL (4.0-11.0)
[2017-09-16 18:00] LABS: ANION GAP 9 (6-14); BLOOD UREA NITROGEN 20 mg/dL (7-20); BUN/CREATININE RATIO 14 (6-20); CALCIUM 8.7 mg/dL (8.5-10.1); CARBON DIOXIDE 28 mmol/L (21-32); CHLORIDE 101 mmol/L (98-107); CREATININE 1.4 mg/dL (0.6-1.0); GFR 44.4; GLUCOSE 147 mg/dL (70-99); POTASSIUM 3.7 mmol/L (3.5-5.1); SODIUM 138 mmol/L (136-145)
[2017-09-16 18:05] LABS: INR 1.1 (0.8-1.1); PARTIAL THROMBOPLASTIN TIME 29 SEC (24-38); PROTHROMBIN TIME PATIENT 13.1 SEC (11.7-14.0)
[2017-09-16 18:06] LABS: ALBUMIN 3.1 g/dL (3.4-5.0); ALBUMIN/GLOBULIN RATIO 0.7 (1.0-1.7); ALK PHOS 100 U/L (46-116); ALT (SGPT) 12 U/L (14-59); AST (SGOT) 15 U/L (15-37); LIPASE 138 U/L (73-393); TOTAL BILIRUBIN 0.1 mg/dL (0.2-1.0); TOTAL PROTEIN 7.3 g/dL (6.4-8.2)
[2017-09-16] MEDS: fentaNYL PF VIAL 100 MCG/2 ML VIAL IV (19:36)
== END 2017-09-16 19:55 | disposition home or self-care (01) ==
LOC: ER 15:23
DX: K43.9 Ventral hernia without obstruction or gangrene (principal); I11.0 Hypertensive heart disease with heart failure; I50.9 Heart failure, unspecified; J44.9 Chronic obstructive pulmonary disease, unspecified; E11.9 Type 2 diabetes mellitus without complications; E66.9 Obesity, unspecified; Z90.81 Acquired absence of spleen; Z68.39 Body mass index [BMI] 39.0-39.9, adult
CPT/HCPCS: 36415; 74176; 80053; 83690; 85025; 85610; 85730; 96374; 99285-25; J3010